=== PATIENT | male | born 2000 | race Hispanic/Latino ===

== ENCOUNTER 2025-02-04 11:27 | Emergency (ER) | payer SELFPAY ==
[~2025-02-04] VITALS: Ht 172.7 cm; Wt 81.3 kg
[2025-02-04] MEDS: ACETAMINOPHEN 325 MG TAB PO ONE (12:43)
[2025-02-04] MEDS: KETOROLAC TROMETHAMINE 30 MG/ML VIAL IM STA (12:43)
[2025-02-04] MEDS ORDERED: CYCLOBENZAPRINE5 MG PO (15:13)
[2025-02-04] MEDS ORDERED: IBUPROFEN800 MG PO (15:13)
[2025-02-04 15:26] VITALS: PULSE 62; RESP 16; TEMP 98.6; O2SAT 96
== END 2025-02-04 15:26 | disposition home or self-care (01) ==
LOC: FSED 11:29
DX: R07.89 Other chest pain (principal); W17.89XA Other fall from one level to another, initial encounter; Y92.89 Other specified places as the place of occurrence of the external cause; F17.210 Nicotine dependence, cigarettes, uncomplicated
CPT/HCPCS: 71250; 96372; 99284; J1885